=== PATIENT | male | born 1935 | race Two or more races ===

== ENCOUNTER → 2020-09-17 09:16 | Outpatient (BNVA) | payer MEDICARE, MEDICAID, SELFPAY | PROVIDERS: PCP Internal Medicine; Referring Provider Hospitalist; Visit Provider Hospitalist | DX: J44.9 Chronic obstructive pulmonary disease, unspecified (principal); J98.4 Other disorders of lung; R05 Cough; Z79.899 Other long term (current) drug therapy | CPT/HCPCS: 99212 ==